=== PATIENT | female | born 1955 | race Two or more races ===

== ENCOUNTER → 2017-05-14 | Outpatient (CLI) | payer BC ==
--- NOTE | 2017-05-14 14:20 | BD ---
EXAMINATION TYPE: MG DEXA axial skeleton. DATE OF EXAM: 05/14/2017 CLINICAL HISTORY: Postmenopausal female. Osteoporosis screening. Height: 69 inches Weight: 249 FRAX RISK QUESTIONS: Alcohol (3 or more units per day): no Family History (Parent hip fracture): no Glucocorticoids (More than 3mos): no (Ex: prednisone, prednisolone, methylprednisolone, dexamethasone, and hydrocortisone). History of Fracture in Adulthood: yes Secondary Osteoporosis: 1. Type 1 Diabetes: no 2. Hyperthyroidism: no 3. Menopause before 45: yes 4. Malnutrition: no 5. Chronic liver disease: no Rheumatoid Arthritis: no Current Tobacco Use: no RISK FACTORS HISTORY OF: History of Wrist Fracture: yes, left When: over 5 years ago Surgery to Wrist (left): yes When: about 5 years ago Family History of Osteoporosis: no Active: yes Diet low in dairy products/other sources of calcium: no Postmenopausal woman: yes Lost more than 2 inches in height since high school: unsure, patient states that at one time height m ay have been 5ft 11 inches Frequent falls: no Poor Health: no Hyperparathyroidism: no Adrenal Insufficiency: no MEDICATIONS: Prednisone or other steroids: no Thyroid Medications: no Osteoporosis Medications: no Additional Medications: blood pressure meds, cholesterol meds twice a week EXAM MEASUREMENTS: Bone mineral densitometry was performed using the [employer]. Bone mineral density as measured about the Lumbar spine is: ----- L1-L4(G/cm2): 1.141 T Score Values are as follows: ----- L2: -1.5 ----- L3: -0.3 ----- L4: 0.6 ----- L1-L4: -0.3 Bone mineral density BASELINE Bone mineral density about the R hip (g/cm2): 0.953 Bone mineral density about the L hip (g/cm2): 0.897 T Score values are as follows: -----R Neck: -0.6 -----L Neck: -1.0 -----R Total: -0.1 -----L Total: -0.1 Bone mineral density BASELINE IMPRESSION: Normal (Values between +1 and -1 indicate normal bone mass). Values approach osteopenia with regards to the left femur. Consider repeating this study in 5 years or sooner if there is some new clinical i ndication. NOTE: T-SCORE=SD OF THE YOUNG ADULT MEAN.
--- NOTE | 2017-05-15 11:20 | MM ---
Reason for exam: screening (asymptomatic). Last mammogram was performed 2 years and 6 months ago. History: Patient is postmenopausal. Physical Findings: A clinical breast exam by your physician is recommended on an annual basis and results should be correlated with mammographic findings. MG 3D Screening Mammo W/Cad Bilateral CC and MLO view(s) were taken. Prior study comparison: November 17, 2014, mammogram, performed at [facility]. November 12, 2013, mammogram, performed at [facility]. There are scattered fibroglandular densities. There is no discrete abnormality. No significant changes when compared with prior studies. ASSESSMENT: Negative, BI-RAD 1 RECOMMENDATION: Routine screening mammogram of both breasts in 1 year.
== END | disposition home or self-care (01) ==
LOC: RADMAMWWP 10:04
PROVIDERS: ATTEND Family Medicine
DX: Z12.31 Encounter for screening mammogram for malignant neoplasm of breast (principal); Z78.0 Asymptomatic menopausal state
CPT/HCPCS: 77063; 77067; 77080

== ENCOUNTER → 2018-09-30 | Outpatient (CLI) | payer BC ==
--- NOTE | 2018-10-02 11:55 | MM ---
Reason for exam: screening (asymptomatic). Last mammogram was performed 1 year and 5 months ago. History: Patient is postmenopausal. Physical Findings: A clinical breast exam by your physician is recommended on an annual basis and results should be correlated with mammographic findings. MG 3D Screening Mammo W/Cad Bilateral CC and MLO view(s) were taken. Prior study comparison: May 14, 2017, bilateral MG 3d screening mammo w/cad. November 17, 2014, mammogram, performed at [facility]. There are scattered fibroglandular densities. No significant changes when compared with prior studies. ASSESSMENT: Benign, BI-RAD 2 RECOMMENDATION: Routine screening mammogram of both breasts in 1 year.
== END | disposition home or self-care (01) ==
LOC: RADMAMWWP 14:26
PROVIDERS: ATTEND Family Medicine
DX: Z12.31 Encounter for screening mammogram for malignant neoplasm of breast (principal)
CPT/HCPCS: 77063; 77067

== ENCOUNTER → 2020-05-26 | Outpatient (CLI) | payer BC ==
--- NOTE | 2020-05-27 14:35 | MM ---
Reason for exam: screening (asymptomatic). Last mammogram was performed 1 year and 8 months ago. History: Patient is postmenopausal. Physical Findings: A clinical breast exam by your physician is recommended on an annual basis and results should be correlated with mammographic findings. MG 3D Screening Mammo W/Cad Bilateral CC and MLO view(s) were taken. Prior study comparison: September 30, 2018, bilateral MG 3d screening mammo w/cad. May 14, 2017, bilateral MG 3d screening mammo w/cad. There are scattered fibroglandular densities. Asymmetric breast tissue right upper aspect, stable. There is no discrete abnormality. Benign bilateral axillary lymph nodes. ASSESSMENT: Benign, BI-RAD 2 RECOMMENDATION: Routine screening mammogram of both breasts in 1 year.
== END ==
LOC: RADMAMWWP 14:42
PROVIDERS: ATTEND Family Medicine
DX: Z12.31 Encounter for screening mammogram for malignant neoplasm of breast (principal); Z78.0 Asymptomatic menopausal state
CPT/HCPCS: 77063; 77067

== ENCOUNTER → 2021-12-07 | Outpatient (CLI) | payer MEDICARE ==
--- NOTE | 2021-12-08 07:48 | MM ---
Reason for Exam: Screening (asymptomatic). Last mammogram was performed 1 year(s) and 6 month(s) ago. Patient History: Menarche at age 13. First Full-Term at age 22. Postmenopausal. Risk Values: Marcelina 5 year model risk: 1.5%. NCI Lifetime model risk: 5.6%. Prior Study Comparison: 05/14/2017 Bilateral Screening Mammogram, [facility]. 09/30/2018 Bilateral Screening Mammogram, [facility]. 05/26/2020 Bilateral Screening Mammogram, [facility]. Tissue Density: There are scattered fibroglandular densities. Findings: Analyzed By CAD. There is no suspicious group of microcalcifications or new suspicious mass in either breast. Overall Assessment: Negative, BI-RAD 1 Management: Screening Mammogram of both breasts in 1 year. A clinical breast exam by your physician is recommended on an annual basis and results should be correlated with mammographic findings. Electronically signed and approved by: Lai Ziegler M.D. Radiologis
== END | disposition home or self-care (01) ==
LOC: RADMAMWWP 15:15
PROVIDERS: ATTEND Family Medicine
DX: Z12.31 Encounter for screening mammogram for malignant neoplasm of breast (principal); Z78.0 Asymptomatic menopausal state
CPT/HCPCS: 77063; 77067

== ENCOUNTER → 2023-03-19 | Outpatient (CLI) | payer MEDICARE ==
--- NOTE | 2023-03-19 16:30 | BD ---
EXAMINATION TYPE: Axial Bone Density DATE OF EXAM: 03/19/2023 CLINICAL HISTORY: 67 years old Female. ICD-10 CODE: , Z78.0 menopause Height: 67.5 in Weight: 253 lbs FRAX RISK QUESTIONS: History of Fracture in Adulthood: lt wrist fx age 57 Secondary Osteoporosis: 3. Menopause before 45: age 40 RISK FACTORS HISTORY OF: History of Wrist Fracture: lt wrist age 57 Surgery to Wrist (left): age 57 Active: yes Diet low in dairy products/other sources of calcium: yes Postmenopausal woman: age 40 Lost more than 2 inches in height since high school: yes 3" MEDICATIONS: Additional Medications: cholesterol meds, and blood pressure meds EXAM MEASUREMENTS: Bone mineral densitometry was performed using the [employer] System. Bone mineral density as measured about the Lumbar spine is: ----- L1-L4(G/cm2): 1.273 T Score Values are as follows: ----- L1: -0.7 ----- L2: -0.7 ----- L3: 0.6 ----- L4: 2.7 ----- L1-L4: 0.8 Z Score Values are as follows: ----- L1: -0.3 ----- L2: -0.3 ----- L3: 1.1 ----- L4: 3.2 ----- L1-L4: 1.2 Bone mineral density has: Increased 11.6% since study of: 05/14/2017 Bone mineral density about the R hip (g/cm2): 0.932 Bone mineral density about the L hip (g/cm2): 0.934 T Score values are as follows: -----R Neck: -0.7 -----L Neck: -1.3 -----R Total: -0.6 -----L Total: -0.6 Z Score values are as follows: -----R Neck: 0.1 -----L Neck: -0.5 -----R Total: -0.1 -----L Total: -0.1 Bone mineral density has: Decreased -6.4% since study of: 05/14/2017 FRAX%s: The graph provided illustrates a 13.1% chance for a major osteoporotic fx and a 1.2% chance f or the hips probability for fx in 10 years time. IMPRESSION: Normal (Values between +1 and -1 indicate normal bone mass). Consider repeating this study in 5 year s or sooner if there is some new clinical indication. NOTE: T-SCORE=SD OF THE YOUNG ADULT MEAN.
--- NOTE | 2023-03-20 13:18 | MM ---
Reason for Exam: Screening (asymptomatic). Last mammogram was performed 1 year(s) and 4 month(s) ago. Patient History: Menarche at age 13. First Full-Term at age 22. Postmenopausal. Risk Values: Marcelina 5 year model risk: 1.5%. NCI Lifetime model risk: 5.2%. Prior Study Comparison: 09/30/2018 Bilateral Screening Mammogram, [facility]. 05/26/2020 Bilateral Screening Mammogram, [facility]. 12/07/2021 Bilateral MG 3D screening mammo w/cad, [facility]. Tissue Density: There are scattered fibroglandular densities. Findings: Analyzed By CAD. There is no suspicious group of microcalcifications or new suspicious mass. Overall Assessment: Negative, BI-RAD 1 Management: Screening Mammogram of both breasts in [address] [facility] will attempt to contact patient to return for supplemental views and ultrasound if indicated. Patient should continue monthly self-breast exams. A clinical breast exam by your physician is recommended on an annual basis. This exam should not preclude additional follow-up of suspicious palpable abnormalities. Note on Marcelina scores and lifetime risk: 1. A Marcelina score greater than 3% is considered moderate risk. If this is the case, consider specialist referral to assess eligibility for a risk reducing agent. 2. If overall lifetime risk for the development of breast cancer is 20% or higher, the patient may qualify for future screening with alternating mammogram and breast MRI. Electronically signed and approved by: Jony Verma DO
== END | disposition home or self-care (01) ==
LOC: RADBDWWP 09:55
PROVIDERS: ATTEND Family Medicine
DX: Z12.31 Encounter for screening mammogram for malignant neoplasm of breast (principal); M85.852 Other specified disorders of bone density and structure, left thigh; Z78.0 Asymptomatic menopausal state
CPT/HCPCS: 77063; 77067; 77080

== ENCOUNTER → 2024-06-25 | Outpatient (CLI) | payer MEDICARE ==
--- NOTE | 2024-06-25 15:36 | MM ---
Reason for Exam: Screening (asymptomatic). Last mammogram was performed 1 year(s) and 3 month(s) ago. Patient History: Menarche at age 13. First Full-Term at age 22. Postmenopausal. Risk Values: Marcelina 5 year model risk: 1.5%. NCI Lifetime model risk: 5.0%. Prior Study Comparison: 05/26/2020 Bilateral Screening Mammogram, [facility]. 12/07/2021 Bilateral MG 3D screening mammo w/cad, [facility]. 03/19/2023 Bilateral MG 3D screening mammo w/cad, [facility]. Tissue Density: There are scattered areas of fibroglandular density. Findings: Analyzed By CAD. There is no suspicious group of microcalcifications or new suspicious mass in either breast. Overall Assessment: Negative, BI-RAD 1 Management: Screening Mammogram of both breasts in 1 year. Patient should continue monthly self-breast exams. A clinical breast exam by your physician is recommended on an annual basis. This exam should not preclude additional follow-up of suspicious palpable abnormalities. Note on Marcelina scores and lifetime risk: 1. A Marcelina score greater than 3% is considered moderate risk. If this is the case, consider specialist referral to assess eligibility for a risk reducing agent. 2. If overall lifetime risk for the development of breast cancer is 20% or higher, the patient may qualify for future screening with alternating mammogram and breast MRI. [facility], , 06/25/2024 3:34 PM. Electronically signed and approved by: Lynette Cade M.D. Radiologist
== END | disposition home or self-care (01) ==
LOC: RADMAMWWP 11:12
PROVIDERS: ATTEND Family Medicine
DX: Z12.31 Encounter for screening mammogram for malignant neoplasm of breast (principal); R92.323 Mammographic fibroglandular density, bilateral breasts; Z78.0 Asymptomatic menopausal state
CPT/HCPCS: 77063; 77067